=== PATIENT | female | born 1990 | race Caucasian/White ===

== ENCOUNTER 2020-08-07 20:30 | Emergency (ER) | payer OTHER ==
[~2020-08-07] VITALS: Ht 167.6 cm; Wt 108.0 kg
[2020-08-07] MEDS ORDERED: NEURONTIN 300M300 M2 PO ×2 (20:38→20:48)
[2020-08-07 21:14] VITALS: BP 142/79
--- NOTE | 2020-08-08 15:50 | EKG ---
[place] [address] ELECTROCARDIOGRAM REPORT Name: CLEO BARTLETT [id number] Admission: 08/07/20 Attend Phys: Discharge: 08/07/20 Date of : 89 Date of Service: 08/07/202033 Report #: [id number] THIS REPORT FOR: //name// [facility] ED Test Date: 2020-08-07 Test Time: 20:34:37 Pat Name: CLEO BARTLETT Department: Room: Gender: F Marketing Strategy Manager: : 1990 Requested By: Kavita Freeman Order Number: [id number] Reading MD: Rickey Alexandra Measurements Intervals [place] Rate: 80 P: 43 [place]: 152 QRS: 36 QRSD: 94 T: 34 QT: 374 QTc: 432 Interpretive Statements Sinus rhythm No previous ECG available for comparison Electronically Signed On 08-08-2020 15:49:52 CDT by Rickey Alexandra [email or web address] <ELECTRONICALLY SIGNED> By: Rickey Alexandra MD, [facility] 08/08/20 1549 33 2034 Rickey Alexandra MD, FACC /EPI
== END 2020-08-07 21:15 | disposition home or self-care (01) ==
LOC: M.ERS 20:30
DX: R56.9 Unspecified convulsions (principal); Z76.0 Encounter for issue of repeat prescription; Z88.0 Allergy status to penicillin; Z88.8 Allergy status to other drugs, medicaments and biological substances